=== PATIENT | female | born 1945 | race Caucasian/White ===

== ENCOUNTER 2023-05-23 23:20 | Emergency (ER) | payer SELFPAY ==
[~2023-05-23] VITALS: Ht 157.5 cm; Wt 63.5 kg
[2023-05-23 23:51] VITALS: BP 153/95; PULSE 63; RESP 16; TEMP 97.4; O2SAT 98
[2023-05-24] MEDS ORDERED: HYDROcodone/APAP 5/325 MG 1 TAB TAB PO ONE (01:10)
[2023-05-24] MEDS ORDERED: DICL100G32 TP (02:52)
[2023-05-24] MEDS ORDERED: ACET-10509 PO (02:52)
[2023-05-24 03:06] VITALS: BP 108/47; PULSE 57; RESP 17; O2SAT 98
== END 2023-05-24 03:06 | disposition home or self-care (01) ==
LOC: MED 23:20
DX: M17.11 Unilateral primary osteoarthritis, right knee (principal); Z79.899 Other long term (current) drug therapy
CPT/HCPCS: 73562; 99283; Q0092